=== PATIENT | female | born 1990 | race Caucasian/White ===

== ENCOUNTER 2018-12-13 09:01 | Inpatient (IN) ==
[2018-12-13 09:39] LABS: BASO# 0.03 X1000 (0.0-0.2); BASO% 0.2 % (0.0-0.8); EOS# 0.05 X1000 (0.0-0.7); EOS% 0.4 % (0.0-10.0); HEMATOCRIT 39.7 % (37.0-47.0); HEMOGLOBIN 12.6 g/dL (12.0-16.0); IMM GRAN# 0.03 X1000 (0.0-0.04); IMM GRAN% 0.2 % (0.0-0.5); LYMPH# 2.49 X1000 (1.2-3.4); LYMPH% 17.7 % (20.5-51.1); MCH 25.5 PG (27-31); MCHC 31.7 g/dL (33-37); MCV 80.4 FL (81-99); MONO# 1.18 X1000 (0.11-0.59); MONO% 8.4 % (1.7-9.3); MPV 10.5 FL (7.4-10.4); NEUT# 10.25 X1000 (1.4-6.5); NEUT% 73.1 % (42.2-75.2); PLT 365 X1000 (130-400); RBC 4.94 XMIL (4.2-5.4); RDW 13.4 % (11.5-14.5); WBC 14.03 X1000 (4.8-10.8)
[2018-12-13 09:45] LABS: BILIRUBIN URINE NEGATIVE (NEGATIVE); BLOOD URINE NEGATIVE (NEGATIVE); CLARITY CLEAR (CLEAR); COLOR YELLOW; GLUCOSE URINE NEGATIVE (NEGATIVE); KETONE URINE NEGATIVE (NEGATIVE); LEUKOCYTES URINE NEGATIVE (NEGATIVE); NITRITE URINE NEGATIVE (NEGATIVE); PROTEIN URINE NEGATIVE (NEGATIVE); UROBILINOGEN URINE NORMAL
[2018-12-13 09:46] LABS: URINE BACTERIA NEGATIVE /HFP; URINE EPITHELIAL CELLS <10 /HPF (<10); URINE RBC <10 /HPF (<10); URINE WBC <10 /HPF (<10); URINE YEAST NONE SEEN /HPF
[2018-12-13 09:47] LABS: URINE CAST NONE SEEN /LPF; URINE CRYSTAL NONE SEEN /HPF; URINE SOURCE CLEAN CATCH
[2018-12-13 09:53] LABS: AGAP 12; ALBUMIN 4.5 g/dL (3.5-5.0); ALKALINE PHOSPHATASE 85 U/L (32-104); BUN 9 mg/dL (8-22); CALCIUM 9.5 mg/dL (8.8-10.2); CHLORIDE 102 mmol/L (98-107); COSMO 277; CREATININE 0.6 mg/dL (0.5-0.9); ESTIMATED GFR > 60; GLUCOSE 104 mg/dL (70-104); GOT 17 U/L (10-30); GPT 11 U/L (10-36); LIPASE 27 U/L (13-60); POTASSIUM 4.4 mmol/L (3.5-5.1); SODIUM 139 mmol/L (136-145); TCO2 25 mmol/L (25-35); TOTAL PROTEIN 7.5 g/dL (6.3-8.3)
[2018-12-13] MEDS ORDERED: MAXIPIME 2 GM in NS 100 ML IV ONE (11:04)
--- NOTE | 2018-12-13 11:06 | Diag Imaging Result Doc PS360 ---
EXAM: CT ABDOMEN/PELVIS W/O CONTRAST HISTORY: right flank pain TECHNIQUE: CT abdomen and pelvis without contrast COMPARISON: None. FINDINGS: No calcified gallstones or adjacent inflammation. No focal hepatic abnormality identified on this noncontrasted exam. The spleen is not enlarged. No inflammation about the pancreas. Normal aorta and adrenal glands. No right renal stone or right-sided hydronephrosis. There is a 2 mm nonobstructing left renal stone. No left-sided hydronephrosis. No bowel obstruction. There is mild inflammation about a mildly thickened appendix. No free air or abscess. No ascites. The urinary bladder is distended and is normal. Normal uterus and ovaries. IMPRESSION: Acute appendicitis. This report was discussed with Dr Wu in the [facility] emergency room on 12/13/2018 at 11:00 AM and was readback. This exam was performed using automated exposure control, adjustment of mA or kV according to patient size, and/or use of iterative reconstruction technique. Electronically signed by Paddy Hassan 12/13/2018 11:04 AM
[2018-12-13] MEDS ORDERED: ZOSYN 2.25 GM in NS 50 ML IV ONE (14:16)
[2018-12-13] MEDS ORDERED: ZOFRAN ONE ×2 (14:45→17:43)
[2018-12-13] MEDS ORDERED: ZOFRAN IV ONE (14:47)
[2018-12-13] MEDS ORDERED: DIPRIVAN 1% ONE (17:12)
[2018-12-13] MEDS ORDERED: LR 1,000 ML ONE ×2 (17:22→19:28)
[2018-12-13] MEDS ORDERED: SENSORCAINE 0.25%/EPI 1:200,000 ONE ×2 (17:22→17:50)
[2018-12-13] MEDS ORDERED: TRANSDERM-SCOP ONE (17:43)
[2018-12-13] MEDS ORDERED: VERSED ONE (17:56)
[2018-12-13] MEDS ORDERED: DECADRON ONE (18:03)
[2018-12-13] MEDS ORDERED: TORADOL ONE (18:03)
[2018-12-13] MEDS ORDERED: OFIRMEV 1000 MG/ISOTONIC SOLN 1,000 MG/100 ML BOTTLE ONE (18:03)
[2018-12-13] MEDS ORDERED: PHENERGAN ONE (18:05)
--- NOTE | 2018-12-13 18:12 | HISTORY AND PHYSICAL ---
CONSULTING PHYSICIAN: Emergency Department, Dr. Wu. CHIEF COMPLAINT: Abdominal pain. HISTORY OF PRESENT ILLNESS: This is a 27-year-old female who is otherwise healthy, who presented with approximately 24 hours of worsening abdominal discomfort. Started yesterday evening around 10:30. She came to [place] ER this afternoon where CT scan was obtained that showed acute appendicitis. She was started on Zosyn intravenously and transferred to [facility] for surgical evaluation. MEDICAL HISTORY: Negative. SURGICAL HISTORY: Tonsillectomy and oral surgery. SOCIAL HISTORY: No tobacco, alcohol, or drugs. 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 She is and has two children. FAMILY HISTORY: Reviewed and negative for colorectal cancer. REVIEW OF SYSTEMS: Ten point review of systems was performed and negative other than what is mentioned in the HPI. PHYSICAL EXAMINATION: VITAL SIGNS: She is afebrile. Pulse 83. Blood pressure 120/65. Oxygen saturation 100%. Weight 180 pounds, 5 ft 2. GENERAL: Alert, in no acute distress. HEENT: No scleral icterus. No cervical mass. CARDIOVASCULAR: Normal rate. PULMONARY: No increased work of breathing. ABDOMEN: Soft. Tender in the right lower quadrant but no diffuse peritonitis. INTEGUMENT: Warm and dry. PSYCHIATRIC: Appropriate affect. NEUROLOGIC: No gross deficits. LYMPHATIC: No cervical, axillary, or inguinal adenopathy. PERIPHERAL VASCULAR: Well perfused. No lower extremity edema. LABORATORY: White count 14, hematocrit 39, and platelets 365,000. Creatinine 0.6. LFTs are normal. Lipase is normal. Urinalysis clear. Urine negative. IMAGING: CT scan shows a dilated appendix in the retrocecal location with some surrounding inflammation; no evidence of perforation. ASSESSMENT AND PLAN: This is a 27-year-old female with acute appendicitis. No evidence of perforation. We discussed risk of bleeding, infection, including abscess, higher if the appendix is found to be perforated, anticipated recovery and the hospital course, damage to surrounding structures, conversion to open. She understands all this, and consents to laparoscopic appendectomy. We will continue her scheduled antibiotics up until surgery. Further disposition pending findings at time of surgery. Mobilize the crew for laparoscopic appendectomy this evening. cc: Laurie Lloyd MD
[2018-12-13] MEDS ORDERED: FENTANYL ONE (18:20)
[2018-12-13] MEDS: DILAUDID ONE ×2 (19:09→19:14)
[2018-12-13] MEDS ORDERED: TORADOL IV PRN (19:45)
[2018-12-13] MEDS ORDERED: OFIRMEV 1000 MG/ISOTONIC SOLN 1,000 MG/100 ML BOTTLE IV SCH (19:45)
[2018-12-13] MEDS ORDERED: ULTRAM PO PRN (19:45)
[2018-12-13] MEDS ORDERED: ZOFRAN IV PRN (19:45)
[2018-12-13] MEDS ORDERED: MORPHINE IV PRN (19:45)
--- NOTE | 2018-12-13 20:14 | OPERATIVE NOTE ---
PROCEDURE DATE: 12/13/2018 SURGEON: Laurie Lloyd MD PREOPERATIVE DIAGNOSIS: Acute appendicitis. POSTOPERATIVE DIAGNOSIS: Acute appendicitis. PROCEDURE PERFORMED: Laparoscopic appendectomy. ESTIMATED BLOOD LOSS: 10 mL. SPECIMENS: Appendix. ANESTHESIA: General. INDICATIONS: This is a female who has developed worsening abdominal pain over the last [address] scan in the emergency department showed acute appendicitis. OPERATIVE FINDINGS: There was a thickened appendix with a normal base, no evidence of perforation, and no other intra-abdominal abnormalities. OPERATIVE NOTE: Risks, benefits, and alternatives were discussed with the patient, and she consented to the procedure. She was seen preoperatively, and the surgical site was confirmed. She was taken to the operating room and placed in supine position. General anesthesia was induced without complication. All bony prominences were padded. Morales catheter was placed and her abdomen was prepped with chlorhexidine solution and draped in the usual fashion. After a time- out, an supraumbilical incision was made and carried down to the fascia. The fascia was incised and the abdomen was entered in a controlled fashion and a 12 mm Sherwin trocar was placed. We then insufflated the abdomen to 15 mmHg. She tolerated this well. We inspected, and there was no injury to the underlying structures. We then placed a 5 mm trocar above the reflection of the bladder in the suprapubic location and a 12 mm in the left lower quadrant lateral to the inferior epigastric vessels. At this point, we identified the appendix. Using the LigaSure, we divided the mesoappendix and 2 fires of a 30 mm gold load stapler were used to divide the appendix from the cecum, protecting the terminal ileum and the cecum. We did this successfully, placed it in Endo Catch bag, irrigated, and confirmed hemostasis and good closure of the appendiceal stump. At this point, her left lower quadrant incision was closed with a Edward-Dakota device and a 0 Vicryl. We desufflated the abdomen after removing the supraumbilical port and closed the fascia with interrupted 0 Vicryl sutures. Skin was closed with Monocryl. Dermabond was applied. Counts were correct. Morales catheter was removed. She was transferred to Recovery. I spoke with family. cc: Laurie Lloyd MD
[2018-12-13] MEDS ORDERED: PERIDEX MT SCH (21:00)
[2018-12-13] MEDS: LR 1,000 ML IV SCH (21:13)
[2018-12-14] MEDS: LR 1,000 ML IV SCH ×2 (02:47→06:25)
[2018-12-14 07:16] VITALS: BP 103/41
--- NOTE | 2018-12-14 14:39 | DISCHARGE SUMMARY ---
ADMISSION DATE: 12/13/2018 DISCHARGE DATE: 12/14/2018 ADMITTING DIAGNOSIS: Acute appendicitis. POSTOPERATIVE DIAGNOSIS: Acute appendicitis. PROCEDURE PERFORMED: Laparoscopic appendectomy. HISTORY OF PRESENT ILLNESS: A 27-year-old female who developed abdominal pain, and CT scan was performed, which showed acute appendicitis. HOSPITAL COURSE: The patient was evaluated after initial evaluation in emergency department for above findings. She was taken to operating room the day of her admission for above procedure. For details, please see dictated operative note. Postoperatively, she did well. Her diet was advanced. She was able to void, and her pain was well controlled with really only Tylenol and Toradol. Her incisions were intact. Her abdomen was soft, appropriately tender. No fevers, tachycardia overnight. DISCHARGE CONDITION: Good. DISPOSITION: Home to self-care. DISCHARGE INSTRUCTIONS: Given in written and verbal format. DISCHARGE MEDICATION: Prescription for Ultram was provided. FOLLOW-UP APPOINTMENT: In 1 week. cc: Laurie Lloyd MD
--- NOTE | 2018-12-19 10:04 | PROVIDER DOCUMENTATION ---
This chart was entered by Viridiana Kuhn Scribe, acting as scribe for Suze Wu MD. HPI-Abdominal Pain/GI Problem - General Chief Complaint: Abdominal Pain Stated Complaint: ABD PAIN Time Seen by Provider: 12/13/18 09:14 Source: patient Allergies/Adverse Reactions: Patient Allergies Allergy/AdvReac Type Severity Reaction Status Date / Time latex Allergy ITCHING Verified 12/13/18 10:14 pneumococcal 7-valent AdvReac Unknown Verified 12/13/18 09:09 conjugate to [From Prevnar] Home Medications: Home Medication List Medication Instructions Recorded Confirmed Last Taken Type Tramadol HCl [Ultram] 50 mg PO Q6H PRN #20 tab 12/14/18 Unknown Rx - History of Present Illness-ABD Nature of Presenting Problems: 27yof presents to ED cc RLQ pain since 5pm yesterday, got worse overnight with her having to be helped in/out of bed and is increased with palpation. Pt also reports some nausea. Pt denies V/D/C/F or urinary symptoms. Pt is nontoxic and in no acute distress upon exam. Abdominal Pain Onset Location: reports: RLQ Pain Radiation: reports: no radiation Quality of Pain: reports: cramping Severity in ED: reports: mild Onset/Duration: reports: 24 hours ago Timing: reports: still present, intermittent Activities at Onset: reports: light activity Modifying Factors: worse with: palpation Associated Symptoms: reports: nausea Similar Symptoms Previously?: No Recently seen or treated by another doctor?: No Review of Systems - Adult - REVIEW OF SYSTEMS - ADULT Constitutional: reports: see HPI. denies: chills, fever, fatique Eyes: reports: no symptoms reported Ears, Nose, Mouth & Throat: reports: no symptoms reported Cardiovascular: reports: no symptoms reported Respiratory: reports: no symptoms reported Gastrointestinal: reports: see HPI, abdominal pain (RLQ), nausea. denies: constipation, diarrhea, vomiting Genitourinary: reports: see HPI. denies: dysuria, flank pain, hematuria Musculoskeletal: reports: see HPI. denies: back pain Integumentary: reports: no symptoms reported Neurological: reports: no symptoms reported Psychiatric: reports: no symptoms reported Endocrine: reports: no symptoms reported Hematologic/Lymphatic: reports: no symptoms reported Allergic/Immunologic: reports: no symptoms reported All Other Systems: Reviewed and Negative Past History - Adult - PAST MEDICAL HISTORY-ADULT Review of Records: reports: Nursing Assessment Review, Medications Reviewed, Social history reviewed & non-contributory. Major Childhood Illnesses: reports: denies history Cardiovascular: reports: denies history Respiratory: reports: denies history Gastrointestinal: reports: denies history Obstetrical/Gynecological: reports: denies history Genitourinary: reports: denies history Musculoskeletal: reports: denies history Neurological: reports: denies history Endocrine/Immune: reports: denies history Other Conditions: reports: denies history - IMMUNIZATION STATUS Childhood Immunizations: See Nurse Assessment Flu Vaccine: See Nurse Assessment - FAMILY HISTORY Family History: reviewed, not pertinent Physical Exam-General - PHYSICAL EXAM-ADULT Initial Vital Signs Reviewed: Yes - CONSTITUTIONAL General Appearance: appears well, alert, no apparent distress. negative: an xious, combative - EYES Eyes: PERRL/EOMI, pink conjunctivae. negative: photophobia - HEAD, EARS, NOSE, MOUTH & THROAT HENMT: normocephalic/atraumatic, moist mucous membranes. negative: angioedema - RESPIRATORY Respiratory: chest non-tender, lungs clear, normal breath sounds. negative: stridor, wheezing - CARDIOVASCULAR Cardiovascular: normal peripheral pulses, regular rate, rhythm, no edema. negative: bradycardia, tachycardia - GASTROINTESTINAL (ABDOMEN) Abdominal Exam: normal bowel sounds, soft, tenderness (RLQ). negative: rebound, Frey's sign - MUSCULOSKELETAL Back Exam: normal inspection, no CVA tenderness, no vertebral tenderness. negative: swelling Extremity: normal inspection, pelvis stable. negative: deformity - SKIN Integumentary: normal color. negative: diaphoresis, ecchymosis - PSYCHIATRIC Psych/Mental Status: normal mood/affect, oriented x 3. negative: anxious, disheveled Progress - PLAN OF CARE/RESULTS Progress/Plan/Lab Results: Vital Signs - 8 hr 12/13/18 09:07 Temperature 98.6 F Pulse Rate 96 H Respiratory Rate 18 Blood Pressure 118/69 O2 Sat by Pulse Oximetry 100 Orders Category Date Time Status ED: Urine Bedside ORDERED Care 12/13/18 09:10 Active AMYLASE [CHEM] Stat Lab 12/13/18 09:10 Ordered CBC WITH DIFF [HEME] Stat Lab 12/13/18 09:10 Ordered COMPREHENSIVE METABOLIC PANEL [CHEM] Stat Lab 12/13/18 09:10 Uncollected LIPASE [CHEM] Stat Lab 12/13/18 09:[address] W/POSS RFLX CULT [URINALYSIS] Stat Lab 12/13/18 09:10 Uncollected Result Diagrams: 12/13/18 09:25 12/13/18 09:25 - CT/MRI 1 CT Study: Abdomen Impression: See EMR Report (IMPRESSION: Acute appendicitis. This report was discussed with Dr Wu in the [place] emergency room on 12/13/2018 at 11:00 AM and was readback. This exam was performed using automated exposure control, adjustment of mA or kV according to patient size, and/or use of iterative reconstruction technique. Electronically signed by Paddy Hassan 12/13/2018 11:04 AM) - CONSULTS/PCP/HOSPITALIST Notification #1 *Consult/PCP/Hospitalist*: Dr. Lloyd/Surgeon Time Discussed: 14:10 Consult Disposition: Admit (send pt to [facility] admit to him) Departure - Departure Date of Disposition Decision: 12/13/18 Time of Disposition Decision: 14:10 DIAGNOSIS: Appendicitis Qualifiers: Appendicitis type: acute appendicitis Acute appendicitis type: unspecified acute appendicitis type Qualified Code(s): K35.80 - Unspecified acute gissel endicitis Disposition: ADMITTED INPATIENT 09 Certified Medical Emergency: Emergent Condition: Stable - Critical Care Note This patient required my direct & personal management of CC.: No Attestation - Physician/ GISSEL Attestation Patient care was provided by Advanced Practice Provider:: No The physician spent face to face time with patient:: Yes Advanced Practice Provider documentation review:: Supervising physician onsite and consulted in the evaluation and care of this patient. The physician did have a face to face encounter with the patient. This chart was documented by the indicated scribe, (Viridiana Kuhn Scribe) and accurately reflects the services I performed and decisions made by me, Suze Wu MD, as attested by the provider's signature.
== END 2018-12-14 08:59 | disposition home or self-care (01) | DRG 343 ==
LOC: P.ED 09:01 → 4N 14:31
PROVIDERS: ADMIT Surgery; ATTEND Surgery